=== PATIENT | female | born 1945 | race Caucasian/White ===

== ENCOUNTER 2017-08-29 08:11 | Day surgery (SDC) | payer MEDICARE, OTHER ==
[~2017-08-29 08:11] MED LIST: Lactated Ringers 1,000 ML IV SCH; Sodium Chloride 0.9% 10 ML Syringe FLUSH PRN; Sodium Chloride 0.9% 2.5 ML Syringe FLUSH PRN
--- NOTE | 2017-08-29 08:50 | PCM.PREANE ---
Preanesthetic Assessment - Anesthesia/Transfusion/Family Hx Anesthesia History: Prior Anesthesia Without Reaction Family History of Anesthesia Reaction: No Transfusion History: No Prior Transfusion(s) Intubation History: Unknown - Review of Systems General: No Symptoms Pulmonary: No Symptoms Cardiovascular: No Symptoms Gastrointestinal: No Symptoms, Other (screening colonoscopy) Neurological: No Symptoms Other: Reports: None - Physical Assessment O2 Sat by Pulse Oximetry: 94 Respiratory Rate: 16 Vital Signs: Last Vital Signs Temp 37.0 C 08/29/17 08:36 Pulse 78 08/29/17 08:36 Resp 16 08/29/17 08:36 BP 147/81 H 08/29/17 08:36 Pulse Ox 94 L 08/29/17 08:36 Height: 1.56 m Weight: 65.771 kg ASA Class: 2 Mental Status: Alert & Oriented x3 Airway Class: Mallampati = 2 Dentition: Reports: Normal Dentition Thyro-Mental Finger Breadths: 2 Mouth Opening Finger Breadths: 2 ROM/Head Extension: Limited/Partial Lungs: Clear to Auscultation, Normal Respiratory Effort Cardiovascular: Regular Rate, Regular Rhythm - Allergies Allergies/Adverse Reactions: Allergies Allergy/AdvReac Type Severity Reaction Status Date / Time acetaminophen [From Tylenol] Allergy Fainting Verified 08/24/17 13:32 alcohol Allergy Fainting Verified 08/24/17 13:32 atorvastatin [From Lipitor] Allergy Other Verified 08/24/17 13:32 ezetimibe [From Zetia] Allergy Other Verified 08/24/17 13:32 gemfibrozil [From Lopid] Allergy Other Verified 08/24/17 13:32 hydrocodone [From Vicoprofen] Allergy Fainting Verified 08/24/17 13:32 hydrocortisone Allergy Fainting Verified 08/24/17 13:32 ibuprofen [From Vicoprofen] Allergy Fainting Verified 08/24/17 13:32 valsartan [From Diovan] Allergy Other Verified 08/24/17 13:32 - Blood Blood Available: No - Anesthesia Plan Pre-Op Medication Ordered: None - Acknowledgements Anesthesia Type Planned: MAC Pt an Appropriate Candidate for the Planned Anesthesia: Yes Alternatives and Risks of Anesthesia Discussed w Pt/Guardian: Yes Pt/Guardian Understands and Agrees with Anesthesia Plan: Yes PreAnesthesia Questionnaire HEENT History: Reports: Cataract Cardiovascular History: Reports: High Cholesterol, Hypertension 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: Musculoskeletal History: Reports: None Neurological History: Reports: Other (See Below) Other Neuro History: hx of motion sickness Endocrine/Metabolic History: Reports: None - Past Surgical History HEENT Surgical History: Reports: Cataract Surgery Female Surgical History: Reports: Tubal Ligation - SUBSTANCE USE Smoking Status *Q: Never Smoker Second Hand Smoke Exposure: No Recreational Drug Use History: No - HOME MEDS Home Medications: Home Meds Rosuvastatin [Crestor] 10 mg PO BEDTIME 02/14/16 [History] Potassium Chloride [Klor-Con M20] 20 meq PO BID 08/24/17 [History] Triamterene/Hydrochlorothiazid [Triamterene-HCTZ 37.5-25 MG] 1 tab PO DAILY 07/30 [History] amLODIPine [Norvasc] 5 mg PO DAILY 08/24/17 [History] - CURRENT (IN HOUSE) MEDS Current Meds: Current Medications Lactated Ringer's (Ringers, Lactated) 1,000 mls @ 125 mls/hr IV ASDIRECTED VERNA Last Admin: 08/29/17 08:34 Dose: 125 mls/hr Sodium Chloride (Saline Flush) 10 ml FLUSH ASDIRECTED PRN PRN Reason: Keep Vein Open Sodium Chloride (Saline Flush) 2.5 ml FLUSH ASDIRECTED PRN PRN Reason: Keep Vein Open Sodium Chloride (Saline Flush) 10 ml FLUSH ASDIRECTED PRN PRN Reason: Keep Vein Open Sodium Chloride (Saline Flush) 2.5 ml FLUSH ASDIRECTED PRN PRN Reason: Keep Vein Open
[2017-08-29] MEDS ORDERED: Propofol 200 MG/20 ML SDV ONE (09:23)
[2017-08-29] MEDS ORDERED: Lidocaine 2% 5 ML SDV ONE (09:23)
[2017-08-29] MEDS ORDERED: fentaNYL 100 MCG/2 ML SDV ONE (09:24)
[2017-08-29] MEDS ORDERED: Midazolam 1 MG/ML 2 ML SDV ONE (09:24)
--- NOTE | 2017-08-29 11:04 | PCM.OPNOTE ---
- General Post-Op/Procedure Note Date of Surgery/Procedure: 08/29/17 Operative Procedure(s): Screening colonoscopy Findings: Diverticulosis Pre Op Diagnosis: Screening colonoscopy Post-Op Diagnosis: Diverticulosis Anesthesia Technique: MAC Primary Surgeon: Angelica Max Condition: Good
--- NOTE | 2017-08-29 11:59 | OR ---
SURGEON: BARBARA GAO MD DATE OF PROCEDURE: 08/29/2017 PREOPERATIVE DIAGNOSIS: Screening colonoscopy. POSTOPERATIVE DIAGNOSIS: Diverticulosis. PROCEDURE PERFORMED: Screening colonoscopy. ANESTHESIA: MAC. EXTENT OF EXAM: To the cecum. INSTRUMENT USED: Olympus colonoscope. PREPARATION: Good. LIMITATIONS: None. INDICATIONS FOR EXAMINATION: The patient is a 71-year-old female, who presents for first time screening colonoscopy. We discussed the procedure as well as expected perioperative course. We discussed the risks, including bleeding, infection, or damage to surrounding structures, including perforation. The patient verbalized understanding and wishes to proceed. PROCEDURE IN DETAIL: The patient was brought into the endoscopy suite and placed in the left lateral decubitus position. A time-out was completed verifying the patient's name, age, date of , allergies, and procedure to be performed. Monitored anesthesia care was induced and continuous oxygen was provided via nasal cannula throughout the procedure. After adequate sedation was achieved, a digital rectal exam was performed. The patient was found to have hemorrhoidal skin tags along her anus. A well lubricated colonoscope was inserted into the rectum and advanced under direct visualization to the level of the cecum. The cecum was identified by both visual and anatomic landmarks. A photograph was taken of the cecal cap. I attempted to retroflex the scope within the cecum, but was causing trauma to the area in my attempts to do so, so this was abandoned. The scope was then fully withdrawn while examining the color, texture, anatomy, and integrity of the mucosa from the cecum to the anal canal. The patient was found to have diverticulosis. The scope was then brought into the rectum and retroflexed to allow visualization of the anal canal opening. The hemorrhoidal tissue appeared normal and a photograph was taken. The scope was then straightened out and withdrawn from the patient. The cecum to the anus time was 6 minutes. The patient tolerated the procedure well and was taken to PACU in stable condition. ENDOSCOPIC DIAGNOSIS: Diverticulosis. RECOMMENDATIONS: Follow up in clinic in 2 weeks. GAUDENCIO TIAN /[id number]
[2017-08-29 13:44] VITALS: BP 108/59
== END 2017-08-29 11:50 | disposition home or self-care (01) ==
LOC: MW.SDS 08:11
PROVIDERS: ATTEND Surgery
DX: Z12.11 Encounter for screening for malignant neoplasm of colon (principal); I10 Essential (primary) hypertension; K57.30 Diverticulosis of large intestine without perforation or abscess without bleeding; E78.00 Pure hypercholesterolemia, unspecified; Z88.8 Allergy status to other drugs, medicaments and biological substances; Z88.6 Allergy status to analgesic agent; Z91.09 Other allergy status, other than to drugs and biological substances; Z79.899 Other long term (current) drug therapy; Z98.51 Tubal ligation status
CPT/HCPCS: 45378; J2250; J3010; J7120; 00812; J2704